=== PATIENT | male | born 1975 | race African-American/Black ===

== ENCOUNTER 2024-07-22 04:04 | Day surgery (SDC) | payer BC ==
[2024-07-20 17:49] VITALS: BMI 33.5
[2024-07-22] MEDS ORDERED: ONDANSETRON 4 MG/2 ML VIAL IVPUSH PRN (10:22)
[2024-07-22] MEDS ORDERED: ACETAMINOPHEN 325 MG TABLET (FP) PO PRN (10:22)
[2024-07-22] MEDS ORDERED: LIDOCAINE 1%/EPI 1:100000 (20 ML MULTI DOSE VIAL) ONE (10:22)
[2024-07-22] MEDS ORDERED: oxyCODONE HCL 5 MG TABLET PO PRN (10:22)
[2024-07-22] MEDS ORDERED: LACTATED RINGERS SOLUTION 1,000 ML IV SCH (10:30)
[2024-07-22] MEDS ORDERED: MIDAZOLAM HCL 2 MG/2 ML SINGLE DOSE VIAL ONE (11:19)
[2024-07-22] MEDS ORDERED: SUCCINYLCHOLINE CHLORIDE 200 MG/10 ML SYRINGE ONE (11:19)
[2024-07-22] MEDS ORDERED: PROPOFOL 20 ML ONE (11:19)
[2024-07-22] MEDS ORDERED: ROCURONIUM BROMIDE 50 MG/5 ML SYRINGE ONE (11:38)
[2024-07-22] MEDS: ceFAZolin SODIUM 1 GM VIAL IVPB ONE (11:44)
[2024-07-22] MEDS: LIDOCAINE 1%/EPI 1:100000 (20 ML MULTI DOSE VIAL) IJ ONE ×3 (11:46→12:04)
[2024-07-22] MEDS: OXYMETAZOLINE 0.05% NASAL SOLUTION 15 ML BOTTLE NS ONE (11:46)
[2024-07-22] MEDS ORDERED: BACITRACIN ZINC 15 GM TUBE TOPICAL OINTMENT ONE (11:47)
[2024-07-22] MEDS: BACITRACIN ZINC 15 GM TUBE TOPICAL OINTMENT TP ONE (11:59)
[2024-07-22] MEDS ORDERED: NEOSTIGMINE METHYLSULFATE 0.5 MG/1 ML - 10 ML MDV ONE (12:51)
[2024-07-22 15:35] VITALS: RESP 20; TEMP 97.7
[2024-07-22 18:04] VITALS: BP 118/78; PULSE 75
== END 2024-07-22 17:50 | disposition home or self-care (01) ==
LOC: JASU-SURG 04:04
PROVIDERS: ATTEND Otolaryngology
PROC: 09BL8ZZ Excision of Nasal Turbinate, Via Natural or Artificial Opening Endoscopic (ICD-10-PCS; 2024-07-22)
PROC: 09BM8ZZ Excision of Nasal Septum, Via Natural or Artificial Opening Endoscopic (ICD-10-PCS; principal; 2024-07-22 11:30)
DX: J34.2 Deviated nasal septum (principal); J34.3 Hypertrophy of nasal turbinates
CPT/HCPCS: 88304-TC; 88311-TC; 94760